=== PATIENT | male | born 1950 | race Caucasian/White ===

== ENCOUNTER 2016-07-03 22:56 | Inpatient (IN) | payer MEDICARE ==
--- NOTE | ~2016-07-03 | DS ---
Discharge Summary [facility] [address] [place]. [address] NAME: JALEN BERNSTEIN NMPark : 50 STATUS : DIS IN PAT#: [id number] AGE: 66 ADM/REG DATE : 07/03/16 MR#: [id number] REPORT SERV DATE: 07/16/16 DICTATED BY: DONOVAN BERNARDO JR DATE: 07/15/16 REPORT STATUS : Draft TRANSCRIBED BY: ITA DATE: 07/15/16 Data Collection from hospitalization DISCHARGE DIAGNOSES: 1. Lower gastrointestinal bleed. 2. Hepatitis - noninfectious. 3. Type 2 diabetes mellitus. 4. End-stage renal disease. 5. Peripheral vascular disease. 6. Coronary artery disease. 7. Ischemic cardiomyopathy with ejection fraction of 25%. 8. Hypertension. 9. Peripheral vascular disease. 10.Obstructive sleep apnea. 11.Former smoker. 12.Obesity. 13.Hyperlipidemia. CONSULTATIONS: 1. Diana Edmonds M.D. 2. Hema West M.D. PROCEDURES PERFORMED: 1. Abdominal ultrasound on 07/04/2016. 2. CT scan of the chest without contrast and CT scan of the abdomen and pelvis without contrast on 07/05/2016. MEDICATIONS: Aspirin 81 mg daily, Dialyvite one tablet every morning, Sensipar 30 mg at bedtime, Plavix 75 mg at bedtime, Docusoft 100 mg twice a day, Apresoline 25 mg every six hours as needed, NovoLog injection insulin as instructed, Lantus 70 units subcutaneously twice a day, Imdur 30 mg twice a day, Fosrenol 750 mg with meals, Lopressor 25 mg twice a day, fish oil 1000 mg twice a day, Protonix 40 mg before breakfast and supper, Florastor 250 mg daily, and Demadex 100 mg on non-hemodialysis days only. He was instructed not to continue Zocor or ranitidine. CONDITION AT DISCHARGE: Stable. DISPOSITION: The patient was discharged home on a renal-diabetic diet with activities as instructed. He would follow up with Dr. Hema West two weeks following discharge. He would undergo a CT scan of the abdomen and chest on 10/07/2016, and he would follow up at [facility] on 07/09/2016. HOSPITAL COURSE: This is a 66-year-old man who dialyzes on Tuesdays, , and Saturdays. He presented initially to [facility] for a complaint of bright red blood per rectum. He was transitioned to [facility] and was found to have elevated liver function tests. He said that he had been experiencing bright red blood per rectum with frequent stooling over the last 72 hours prior to admission. He reports that his stools are tarry colored in nature. He reports that he chronically uses Plavix, but no Discharge Summary [address] [address] NAME: JALEN BERNSTEIN NORM : 50 STATUS : DIS IN PAT#: [id number] AGE: 66 ADM/REG DATE : 07/03/16 MR#: [id number] REPORT SERV DATE: 07/16/16 DICTATED BY: DONOVAN BERNARDO JR DATE: 07/15/16 REPORT STATUS : Draft TRANSCRIBED BY: TIA DATE: 07/15/16 other anticoagulant medications. He was admitted to the hospital at this time for further evaluation and treatment. Upon admission, creatinine level was 9.35. Hemodialysis therapy was going to be performed that day. Level 1 sliding scale insulin was started. He was placed on a renal/diabetic diet. He was going to be held n.p.o. Ultrasound of the liver was requested and we would evaluate him for hepatitis panel. The following day, he was seen by Dr. Diana Edmonds. The patient said he has never had any problems with his liver. His only two new medications are Fosrenol and Sensipar. He has had no recent antibiotics. He had been a drinker at an earlier age of vodka and beer; however, he has not had any significant drinking in 20 years. He had no signs of chronic liver disease. He typically has a bowel movement almost every day or every other day. However, he started to take stool softeners. He has noticed over the last three days that he started to have bleeding and his hemoglobin had dropped a little. He has had multiple colonoscopies where he had been found to have hemorrhoids, diverticulosis, and polyps that were all removed. A CT scan was performed and revealed very subtle thickening of the sigmoid colon with diverticulosis, a little bit of fluid in the abdomen around the spleen and pelvis, a right adrenal gland mass, renal calculi and gall stones. Unfortunately, there was no mention of how big the spleen was while on the CT. They quantify the liver and spleen as normal in size, contour, and attenuation. He has had some hematochezia. He had no further bleeding at this time. He was felt to have hepatitis - acute. Cholesterol medication was stopped. We would recheck his PT/INR. Serologies were going to be checked as well as a followup ultrasound. He was also seen by Dr. Hema West. The patient does have elevated liver enzymes. He is on atorvastatin. He has had no chest pain. DAPT was held. The patient does have an ICD in place. Statin agent was also held. On 07/05/2016, he had no new complaints. He had no focal deficits. He has not had a bowel movement. He had no evidence of bleeding. INR level was 2. Hemoglobin level had improved. There was no evidence of bleeding. AST had decreased. He had no chest pain. On 07/06/2016, the patient had undergone a CT scan of the chest without contrast as well as a CT scan of the abdomen and pelvis without contrast. He felt well. He had no bleeding. Liver function tests had decreased. H and H were stable. He had no melena or hematochezia. He had no chest pain. INR level was 1.7. Statin agent remained on hold. He was started on full liquids. The patient had been found to have a left upper lobe nodule that measured 7 x [address] scan in three months was recommended to evaluate for change or further evaluation with PET-CT. The following day, hemodialysis therapy was performed. He was fully alert and oriented. He was afebrile. Vital signs were stable. He had no signs of any further GI bleeding. Discharge planning was performed. On 07/08/2016, he had no complaints. He was afebrile. Liver function tests had improved, but were still elevated. He had no bleeding. Discharge instructions were given. Due to his improved and stable condition, he was discharged home with the above-stated instructions. Information collected by: Tori Mead I submit the above information as my discharge summary. TG/MODL Discharge Summary [place] [id number] [place]. [address] NAME: JALEN BERNSTEIN NORM : 50 STATUS : DIS IN [facility]#: [id number] AGE: 66 ADM/REG DATE : 07/03/16 MR#: [id number] REPORT SERV DATE: 07/16/16 DICTATED BY: DONOVAN BERNARDO JR DATE: 07/15/16 REPORT STATUS : Draft TRANSCRIBED BY: TIA DATE: 07/15/16 Donovan Bernardo Jr, M.D. / [id number] CC: Leonel Decker Jr, MD Mandeep Grewal, M.D. Munford Yates III, M.D. Alexander Stratienko, M.D.
--- NOTE | ~2016-07-03 | CN ---
Consultation Report [facility] [address] [place]. [address] NAME: JALEN BERNSTEIN : 50 STATUS : ADM IN PAT#: [id number] AGE: 66 ADM/REG DATE : 07/03/16 MR#: [id number] REPORT SERV DATE: 07/04/16 DICTATED BY: OSCAR EDMONDS III DATE: 07/04/16 REPORT STATUS : Draft TRANSCRIBED BY: MODShade DATE: 07/04/16 CONSULTATION DATE OF CONSULTATION: HISTORY OF PRESENT ILLNESS: The patient is a 66-year-old obese white male with multiple medical problems including type 2 diabetes, hypertension, peripheral vascular disease status post left BKA, ischemic cardiomyopathy, obstructive sleep apnea, tobacco abuse, obesity, and end-stage renal disease, who presents from [place] with multiple bloody bowel movements and markedly elevated liver tests. The patient has told me that he never has had problem with his liver. No family history. His only two new medications are Fosrenol and Sensipar. No recent antibiotics. He had been a drinker at an earlier age of vodka and beer; however, he has not had any significant drinking in 20 years. He got back since for hepatitis when he started dialysis about a year ago and at that time, viral serologies were negative. There are no signs of any chronic liver disease. His mental status has been intact, although he has had some fatigue. At the outside hospital, it was noted that his platelets were low at 43,000 and his INR was 2.4, and he is on no anticoagulation. The patient typically has a bowel movement almost every day or every other day. However, he is starting to take stool softeners. He has noticed over the last three days, he started having bleeding, and his hemoglobin dropped a little bit. He has had multiple colonoscopies, the last by Dr. Mikel Altamirano in 10/2015, where he had hemorrhoids, diverticulosis, and polyps that were all removed. CT scan was done that noted some very subtle thickening of his sigmoid colon with diverticulosis, little bit of fluid in the abdomen around the spleen and pelvis, a right adrenal gland mass, renal calculi, and gallstones. Unfortunately, there was no mention as to how big the spleen was while on the CT, they quantified the liver and spleen as normal in size, contour, and attenuation. MEDICATIONS: Aspirin, vitamin B, Sensipar, Plavix, docusate, hydralazine, insulin, Fosrenol, Imdur, Lopressor, Zantac, Florastor, Zocor, and Demadex. ALLERGIES: NONE. PAST SURGICAL HISTORY: 1. Left BKA. 2. Pacemaker. 3. Left renal artery stent. SOCIAL HISTORY: He is . No recent alcohol or drugs. Tobacco abuse as noted. Consultation Report [address] [address] NAME: JALEN BERNSTEIN : 50 STATUS : ADM IN PAT#: [id number] AGE: 66 ADM/REG DATE : 07/03/16 MR#: [id number] REPORT SERV DATE: 07/04/16 DICTATED BY: OSCAR EDMONDS III DATE: 07/04/16 REPORT STATUS : Draft TRANSCRIBED BY: TIA DATE: 07/04/16 PHYSICAL EXAMINATION: GENERAL: The patient is an older than stated age, obese white male. VITAL SIGNS: Stable. He is afebrile, atraumatic, normocephalic. HEENT: Sclerae anicteric. Oropharynx is clean. CHEST: Clear to auscultation. CV: S1, S2. ABDOMEN: Soft, obese, and nontender. Good bowel sounds. EXTREMITIES: Right leg with some chronic inflammatory changes. PERTINENT LABORATORY DATA: Hemoglobin 11.3, platelets 43, creatinine 9.35, CO2 of 29, bilirubin 1.2, albumin 3.4, ALT 5700, AST 7800, CPK 800, ammonia 43. ASSESSMENT AND PLAN: 1. Hematochezia. As noted, the patient presents with hematochezia. There was some concern on the CT regarding some thickening. He is having no pain. No further bleeding. Colonoscopy as noted. In light of the liver abnormalities, we will monitor this and base any further evaluation such as colonoscopy on his clinical status. As such, we will do the following:. a. Monitor stools. b. Monitor bleeding. c. Monitor H and H. 2. Hepatitis. The patient is a middle-aged white male with multiple medical problems, who presents with acute hepatitis. As such, we will do the following:. a. Stop his cholesterol medicine. b. Recheck his PT/INR. c. Serologies. d. Followup ultrasound. e. Mental status is intact while his INR is elevated, which is a little confusing, but we will recheck. MY/MODL Oscar Edmonds III, M.D. / [id number] CC: Leonel Decker Jr, M.D.
--- NOTE | ~2016-07-03 | HP ---
History And Physical [place] [id number] [facility] [place]. [address] NAME: JALEN BERNSTEIN : 50 STATUS : ADM IN PAT#: [id number] AGE: 66 ADM/REG DATE : 07/03/16 MR#: [id number] REPORT SERV DATE: 07/04/16 DICTATED BY: DONOVAN BERNARDO JR DATE: 07/04/16 REPORT STATUS : Draft TRANSCRIBED BY: MODL DATE: 07/04/16 DATE OF ADMISSION: 07/03/2016 REASON FOR ADMISSION: Bright red blood per rectum and elevated LFTs. HISTORY OF PRESENT ILLNESS: This is a fairly pleasant, 66-year-old, male patient, who dialyzes on a TTS schedule at [place], presented initially to [facility] for a complaint of bright red blood per rectum. He was transitioned here to [facility] and noted to have elevated LFTs on evaluation at [facility] prior to transport here. He states that he has been experiencing bright red blood per rectum with frequent stooling over the last 72 hours. He reports that his stools are tarry colored in nature. I do not have current medication records as they have not been collected by the pharmacy, however, he reports chronically using Plavix, but no other anticoagulant medications. He denies current chest pain. No nausea, vomiting, or diarrhea. PAST MEDICAL HISTORY: Positive for end-stage renal disease as above on a Wednesday, , and Wednesday hemodialysis at [place] via a left upper extremity fistula. History is also positive for diabetes mellitus type 2, hypertension, peripheral vascular disease, left BKA, left renal artery stent in 07/2012, ejection fraction of 30% to 35% in 07/2015, obstructive sleep apnea, obesity, history of tobacco use with smoking cessation at 2014 hours and hyperlipidemia. REVIEW OF SYSTEMS: Completed. Please see HPI for pertinent details. SOCIAL HISTORY: No ETOH. No illicit drugs. Remote tobacco abuse as above. MEDICATIONS: Unavailable at current point of dictation. ALLERGIES: HISTORICALLY, HE LISTS ALLERGIES NO KNOWN ALLERGIES. AGAIN, THIS HAS NOT BEEN UPDATED OF THIS ADMISSION. PHYSICAL EXAMINATION: VITAL SIGNS: Blood pressure 127/61, temperature 98.1, respiratory rate 18, heart rate 71 beats per minute and regular. GENERAL: He is awake, alert, oriented x3. No acute distress during evaluation. HEENT: Normocephalic and atraumatic. Normal ocular movements. No scleral icterus. No conjunctival pallor is appreciated. NECK: Supple without thyromegaly. No JVD or mass. CHEST: Shows positive S1 and S2. No rubs or gallops. LUNGS: Diminished. Clear to auscultation, otherwise throughout. Normal expansion and effort bilaterally. No rhonchi or wheezes are appreciated on examination. GI: Positive bowel sounds and a mildly rounded abdomen, nondistended with no mass, no tenderness. : Deferred. EXTREMITIES: Show positive pulses in bilateral upper extremities. Left upper extremity History And Physical [place] [id number] [facility] [place]. [address] NAME: JALEN BERNSTEIN : 50 STATUS : ADM IN [facility] WITH [facility]#: [id number] AGE: 66 ADM/REG DATE : 07/03/16 MR#: [id number] REPORT SERV DATE: 07/04/16 DICTATED BY: DONOVAN BERNARDO JR DATE: 07/04/16 REPORT STATUS : Draft TRANSCRIBED BY: TIA DATE: 07/04/16 fistula with a palpable bruit and thrill. He does have the lower extremity amputation as listed in his medical history. NEUROLOGIC: He appears to be grossly intact. Nonfocal. SKIN: Warm, dry, and intact to visualized surfaces. No rash, lesions, or ecchymosis, PSYCHIATRIC: He has appropriate mood and affect. LABORATORY DATA: Pertinent laboratories and imaging to this evaluation. CBC: White blood cell count 8.9, RBC 3.56, 11.3, hematocrit 35.7, platelets at 43. Hepatic panel: Sodium 142, potassium 5.5, chloride 101, CO2 29, BUN 85, creatinine 9.35 with reflected GFR at 5 mL/minute. Glucose 155, calcium 8.6, magnesium 2.5, albumin 3.4, direct bilirubin 0.4 and indirect is 0.8, ALT 5761, AST 7852, ammonia level 43. IMPRESSION AND PLAN: This is an end-stage renal disease patient, dialyzes on a Wednesday, , and Wednesday schedule at [place], left upper extremity, initially presenting to [facility], now transitioned to [facility] in favor of admission and workup with further supportive care. Admitted end-stage renal disease, bright red blood per rectum with a complaint of tarry stools, onset approximately 72 hours ago with stable hemoglobin and elevated potassium and elevated LFTs. Plan for hemodialysis today. Address home medications as they become available from the pharmacy staff. Place the patient on sliding scale level 1, renal ADA diet, and n.p.o. until evaluated by GI this morning. As his LFTs are elevated, certainly if he is on a statin that will be removed. We will also complete an ultrasound of his liver and evaluate him for hepatitis panel as well. The patient has previously been seen by Dr. Altamirano for his GI needs and we will request a consultation from their service. Serial H and H q.12 hours at this point, and if he remains stable, decrease them to daily. Further modification of treatment plan may be made based on clinical presentation, the patient's laboratory results, further consultation with renal attending. We appreciate GI Services providing assistance in care and medical opinion for care of this patient. DICTATED BY: Jay Roberts NP JR/TIA Donovan Bernardo Jr, M.D. / [id number] CC: Leonel Decker Jr, M.D.
[~2016-07-03 22:56] MED LIST: APRES25 PO; ASA5GR PO; ASAB PO; CAT3 PO; CENTRUM PO; CENTRUM TAB1 TAB PO; COZ50 PO; CRESTOR40 MG PO; DEMA100 PO; DIALYVITE800 MG PO; DOCUSOFT S100 MG PO; FISH-EPA1000 MG PO; FOLIC ACID800 MCG PO; FOLIC PO; HCTZ25B PO; HUMALOGPEN SC; HYDRALAZINE100 MG PO; IMDUR120 PO; IMDUR30 PO; IMDUR60 PO; LANTUSCART SC; LEVEMIR SC; LOP100 PO; LOP25 PO; LOP50 PO; MICARDIS80 PO; NORV5 PO; NOVOLOG SC; PEP20 PO; PLAVIX PO; PLAVIX300 MG PO; PROVENTSOL INH; RENVELA2.4 GM PO; SPIRO25 PO; SPIRO50 PO; VANCOMYCIN; VASOTEC20 MG PO; VITAMIN D31000 UNIT PO; VITC500 PO; ZANTAC150 MG PO; ZOCOR20 PO; ZOSYN; [UNRECOGNIZED DRUG - OTHER]
[2016-07-04 06:21] LABS: HEMATOCRIT 35.7 % (40.0-51.0); HEMOGLOBIN 11.3 g/dL (13.6-17.8); MEAN CORPUS HGB CONC 31.7 g/dL (32.0-36.0); MEAN PLATELET VOLUME 10.8 fL (9.2-13.0); RBC DISTRIBUTION WIDTH 16.9 % (12.0-16.0); RED CELL COUNT 3.56 10/6/uL (4.7-6.1); WHITE BLOOD CELLS 8.9 10/3/uL (4.5-10.5)
[2016-07-04 06:24] LABS: MEAN CORPUSCULAR HEMOGLOB 31.7 pg (26.0-34.0); MEAN CORPUSCULAR VOLUME 100.3 fL (80-100)
[2016-07-04 06:25] LABS: MANUAL DIFF YES %
[2016-07-04 06:50] LABS: ALBUMIN 3.4 G/DL (3.5-5.0); CHLORIDE, SERUM 101 MMOL/L (96-112); CO2 (CARBON DIOXIDE) 29 MMOL/L (24-34); SGPT(ALT) 5761 U/L (5-65); SODIUM, SERUM 142 MMOL/L (135-148)
[2016-07-04 06:51] LABS: BUN (BLOOD UREA NITROGEN) 85 MG/DL (6-23); CALCIUM, SERUM 8.6 MG/DL (8.5-10.4); CREATININE 9.35 MG/DL (0.70-1.30); GFR AFRICAN AMERICAN 6 ML/MIN (>=60); GFR NON AFRICAN AMERICAN 5 ML/MIN (>=60); GLUCOSE, SERUM 155 MG/DL (60-99); POTASSIUM, SERUM 5.5 MMOL/L (3.5-5.3)
[2016-07-04 06:52] LABS: ALKALINE PHOSPHATASE 111 U/L (45-117); DIRECT BILIRUBIN 0.4 MG/DL (0.0-0.4); INDIRECT BILIRUBIN(NOT ORDER) 0.8 MG/DL (0.1-0.9); SGOT(AST) 7852 U/L (5-40); TOTAL BILIRUBIN 1.2 MG/DL (0-1.2); TOTAL PROTEIN 6.1 G/DL (6.0-8.5)
[2016-07-04 07:14] LABS: PLATELET COUNT 43 10/3/uL (150-400)
[2016-07-04 07:16] LABS: BAND NEUTROPHILS 1 %; LYMPHOCYTES 10 %; LYMPHOCYTES ABSOLUTE (CALC) 0.89 10/3/uL (0.67-4.30); MACROCYTES 1+ (5-10/OIF) (0-5/OIF); MONOCYTES 6 %; MONOCYTES ABSOLUTE (CALC) 0.53 10/3/uL (0.21-1.20); NEUTROPHILS ABSOLUTE (CALC) 7.48 10/3/uL (2.02-8.40); SEGMENTED NEUTROPHIL (0) 83 %; TOTAL NUCLEATED CELLS 100
[2016-07-04] MEDS ORDERED: SENSIPAR30 MG PO (10:00)
[2016-07-04] MEDS ORDERED: ZANTAC150 MG PO (10:04)
[2016-07-04] MEDS ORDERED: FOSRENOL750 MG PO (10:08)
[2016-07-04] MEDS ORDERED: FLORASTOR250 MG PO (10:08)
[2016-07-04 19:11] LABS: BASOPHILS 0.5 %; BASOPHILS ABSOLUTE 0.04 10/3/uL (0.0-0.16); EOSINOPHILS 1.4 %; EOSINOPHILS ABSOLUTE 0.11 10/3/uL (0.0-0.53); HEMOGLOBIN 12.1 g/dL (13.6-17.8); IMMATURE GRANULOCYTES 0.3 %; IMMATURE GRANULOCYTES ABSOLUTE 0.02 10/3/uL (0.0-0.11); INTERNATIONAL NORMAL RATI 2.3 UNITS (-); LYMPHOCYTES 7.6 %; MANUAL DIFF NO %; MEAN CORPUS HGB CONC 31.8 g/dL (32.0-36.0); MEAN CORPUSCULAR HEMOGLOB 31.3 pg (26.0-34.0); MEAN CORPUSCULAR VOLUME 98.2 fL (80-100); MEAN PLATELET VOLUME 11.1 fL (9.2-13.0); MONOCYTES 6.8 %; MONOCYTES ABSOLUTE 0.54 10/3/uL (0.21-1.20); NEUTROPHILS 83.4 %; NEUTROPHILS ABSOLUTE 6.58 10/3/uL (2.02-8.40); PLATELET COUNT 58 10/3/uL (150-400); PROTIME (NOT ORD) 25.3 SEC (12.0-14.5); RBC DISTRIBUTION WIDTH 16.3 % (12.0-16.0); RED CELL COUNT 3.87 10/6/uL (4.7-6.1); WHITE BLOOD CELLS 7.9 10/3/uL (4.5-10.5)
[2016-07-04 19:25] LABS: PLATELET ESTIMATE DEC (ADEQUATE)
[2016-07-04 19:30] LABS: ALBUMIN 3.9 G/DL (3.5-5.0); BUN (BLOOD UREA NITROGEN) 61 MG/DL (6-23); CHLORIDE, SERUM 103 MMOL/L (96-112); CO2 (CARBON DIOXIDE) 28 MMOL/L (24-34); CREATININE 6.91 MG/DL (0.70-1.30); GFR AFRICAN AMERICAN 9 ML/MIN (>=60); GFR NON AFRICAN AMERICAN 8 ML/MIN (>=60); GLUCOSE, SERUM 178 MG/DL (60-99); IMMUNOGLOBULIN A 223 MG/DL (70-420); IMMUNOGLOBULIN G 918 MG/DL (673-1464); IMMUNOGLOBULIN M 34 MG/DL (30-270); POTASSIUM, SERUM 4.5 MMOL/L (3.5-5.3); SODIUM, SERUM 141 MMOL/L (135-148)
[2016-07-05 08:54] LABS: BASOPHILS 0.3 %; BASOPHILS ABSOLUTE 0.02 10/3/uL (0.0-0.16); EOSINOPHILS 1.9 %; EOSINOPHILS ABSOLUTE 0.13 10/3/uL (0.0-0.53); HEMATOCRIT 37.2 % (40.0-51.0); HEMOGLOBIN 11.8 g/dL (13.6-17.8); IMMATURE GRANULOCYTES 0.3 %; IMMATURE GRANULOCYTES ABSOLUTE 0.02 10/3/uL (0.0-0.11); LYMPHOCYTES ABSOLUTE 0.55 10/3/uL (0.67-4.30); MEAN CORPUS HGB CONC 31.7 g/dL (32.0-36.0); MEAN CORPUSCULAR HEMOGLOB 30.9 pg (26.0-34.0); MEAN CORPUSCULAR VOLUME 97.4 fL (80-100); MEAN PLATELET VOLUME 11.9 fL (9.2-13.0); MONOCYTES 5.8 %; NEUTROPHILS 83.7 %; NEUTROPHILS ABSOLUTE 5.78 10/3/uL (2.02-8.40); PLATELET COUNT 57 10/3/uL (150-400); RBC DISTRIBUTION WIDTH 16.1 % (12.0-16.0); RED CELL COUNT 3.82 10/6/uL (4.7-6.1); WHITE BLOOD CELLS 6.9 10/3/uL (4.5-10.5)
[2016-07-05 09:00] LABS: PROTIME (NOT ORD) 22.6 SEC (12.0-14.5)
[2016-07-05 09:04] LABS: MANUAL DIFF NO %
[2016-07-05 09:24] LABS: A/G RATIO 1.1 (0.7-1.9); ALBUMIN 3.6 G/DL (3.5-5.0); ALKALINE PHOSPHATASE 134 U/L (45-117); BUN (BLOOD UREA NITROGEN) 67 MG/DL (6-23); CALCIUM, SERUM 8.8 MG/DL (8.5-10.4); CHLORIDE, SERUM 106 MMOL/L (96-112); CO2 (CARBON DIOXIDE) 25 MMOL/L (24-34); CREATININE 7.58 MG/DL (0.70-1.30); GFR AFRICAN AMERICAN 8 ML/MIN (>=60); GFR NON AFRICAN AMERICAN 7 ML/MIN (>=60); GLOBULIN 3.2 G/DL (2.5-4.1); GLUCOSE, SERUM 143 MG/DL (60-99); POTASSIUM, SERUM 4.4 MMOL/L (3.5-5.3); SGOT(AST) 3717 U/L (5-40); SGPT(ALT) 5104 U/L (5-65); SODIUM, SERUM 142 MMOL/L (135-148); TOTAL BILIRUBIN 1.4 MG/DL (0-1.2); TOTAL PROTEIN 6.8 G/DL (6.0-8.5)
[2016-07-05 09:41] LABS: PLATELET ESTIMATE DEC (ADEQUATE)
[2016-07-05 09:42] LABS: RBC MORPHOLOGY NORM (NORMAL)
[2016-07-05 18:58] LABS: HEMATOCRIT 38.9 % (40.0-51.0); HEMOGLOBIN 12.4 g/dL (13.6-17.8)
[2016-07-06 04:35] LABS: BASOPHILS 0.4 %; BASOPHILS ABSOLUTE 0.03 10/3/uL (0.0-0.16); EOSINOPHILS 1.9 %; EOSINOPHILS ABSOLUTE 0.13 10/3/uL (0.0-0.53); HEMATOCRIT 36.4 % (40.0-51.0); HEMOGLOBIN 11.6 g/dL (13.6-17.8); IMMATURE GRANULOCYTES 0.3 %; IMMATURE GRANULOCYTES ABSOLUTE 0.02 10/3/uL (0.0-0.11); LYMPHOCYTES 9.9 %; LYMPHOCYTES ABSOLUTE 0.69 10/3/uL (0.67-4.30); MEAN CORPUS HGB CONC 31.9 g/dL (32.0-36.0); MEAN CORPUSCULAR HEMOGLOB 30.9 pg (26.0-34.0); MEAN CORPUSCULAR VOLUME 97.1 fL (80-100); MEAN PLATELET VOLUME 11.1 fL (9.2-13.0); MONOCYTES 11.7 %; MONOCYTES ABSOLUTE 0.81 10/3/uL (0.21-1.20); NEUTROPHILS 75.8 %; NEUTROPHILS ABSOLUTE 5.26 10/3/uL (2.02-8.40); PLATELET COUNT 56 10/3/uL (150-400); RBC DISTRIBUTION WIDTH 16.2 % (12.0-16.0); RED CELL COUNT 3.75 10/6/uL (4.7-6.1); WHITE BLOOD CELLS 6.9 10/3/uL (4.5-10.5)
[2016-07-06 04:36] LABS: MANUAL DIFF NO %
[2016-07-06 04:40] LABS: INTERNATIONAL NORMAL RATI 1.7 UNITS (-); PROTIME (NOT ORD) 19.6 SEC (12.0-14.5)
[2016-07-06 04:53] LABS: PLATELET ESTIMATE DEC (ADEQUATE)
[2016-07-06 04:54] LABS: POLYCHROMASIA 1+ (2-5/OIF) (0-1/OIF)
[2016-07-06 05:05] LABS: A/G RATIO 1.1 (0.7-1.9); ALBUMIN 3.4 G/DL (3.5-5.0); ALKALINE PHOSPHATASE 128 U/L (45-117); CALCIUM, SERUM 8.4 MG/DL (8.5-10.4); CHLORIDE, SERUM 103 MMOL/L (96-112); CO2 (CARBON DIOXIDE) 25 MMOL/L (24-34); CPK 77 U/L (0-200); GAMMA GT 67 U/L (5-85); GLOBULIN 3.1 G/DL (2.5-4.1); GLUCOSE, SERUM 148 MG/DL (60-99); INDIRECT BILIRUBIN(NOT ORDER) 0.7 MG/DL (0.1-0.9); PHOSPHORUS, SERUM 5.7 MG/DL (2.5-4.5); POTASSIUM, SERUM 4.1 MMOL/L (3.5-5.3); SGOT(AST) 1955 U/L (5-40); SGPT(ALT) 3994 U/L (5-65); SODIUM, SERUM 141 MMOL/L (135-148); TOTAL BILIRUBIN 1.5 MG/DL (0-1.2); TOTAL PROTEIN 6.5 G/DL (6.0-8.5)
[2016-07-06 05:06] LABS: BUN (BLOOD UREA NITROGEN) 77 MG/DL (6-23); CREATININE 8.29 MG/DL (0.70-1.30); DIRECT BILIRUBIN 0.8 MG/DL (0.0-0.4); GFR AFRICAN AMERICAN 7 ML/MIN (>=60); GFR NON AFRICAN AMERICAN 6 ML/MIN (>=60)
[2016-07-07 04:40] LABS: BASOPHILS 0.3 %; BASOPHILS ABSOLUTE 0.02 10/3/uL (0.0-0.16); EOSINOPHILS ABSOLUTE 0.06 10/3/uL (0.0-0.53); HEMATOCRIT 35.4 % (40.0-51.0); HEMOGLOBIN 11.4 g/dL (13.6-17.8); IMMATURE GRANULOCYTES 0.3 %; IMMATURE GRANULOCYTES ABSOLUTE 0.02 10/3/uL (0.0-0.11); LYMPHOCYTES 11.3 %; MANUAL DIFF NO %; MEAN CORPUS HGB CONC 32.2 g/dL (32.0-36.0); MEAN CORPUSCULAR HEMOGLOB 31.1 pg (26.0-34.0); MEAN CORPUSCULAR VOLUME 96.5 fL (80-100); MEAN PLATELET VOLUME 10.4 fL (9.2-13.0); MONOCYTES 11.5 %; MONOCYTES ABSOLUTE 0.71 10/3/uL (0.21-1.20); NEUTROPHILS 75.6 %; NEUTROPHILS ABSOLUTE 4.67 10/3/uL (2.02-8.40); PLATELET COUNT 59 10/3/uL (150-400); RBC DISTRIBUTION WIDTH 16.2 % (12.0-16.0); RED CELL COUNT 3.67 10/6/uL (4.7-6.1); WHITE BLOOD CELLS 6.2 10/3/uL (4.5-10.5)
[2016-07-07 04:48] LABS: INTERNATIONAL NORMAL RATI 1.6 UNITS (-); PROTIME (NOT ORD) 18.7 SEC (12.0-14.5)
[2016-07-07 05:01] LABS: ALBUMIN 3.3 G/DL (3.5-5.0); ALKALINE PHOSPHATASE 121 U/L (45-117); BUN (BLOOD UREA NITROGEN) 88 MG/DL (6-23); CALCIUM, SERUM 7.4 MG/DL (8.5-10.4); CHLORIDE, SERUM 103 MMOL/L (96-112); CO2 (CARBON DIOXIDE) 27 MMOL/L (24-34); CREATININE 8.42 MG/DL (0.70-1.30); GFR AFRICAN AMERICAN 7 ML/MIN (>=60); GFR NON AFRICAN AMERICAN 6 ML/MIN (>=60); GLOBULIN 3.2 G/DL (2.5-4.1); GLUCOSE, SERUM 65 MG/DL (60-99); POTASSIUM, SERUM 3.6 MMOL/L (3.5-5.3); SGOT(AST) 796 U/L (5-40); SGPT(ALT) 2758 U/L (5-65); SODIUM, SERUM 142 MMOL/L (135-148); TOTAL BILIRUBIN 1.9 MG/DL (0-1.2); TOTAL PROTEIN 6.5 G/DL (6.0-8.5)
[2016-07-07 05:11] LABS: PLATELET ESTIMATE DEC (ADEQUATE); RBC MORPHOLOGY NORM (NORMAL)
[2016-07-07 10:31] LABS: HEPATITIS C ANTIBODY NON-REACTIVE (NON-REACT)
[2016-07-08 06:29] LABS: BASOPHILS 0.4 %; BASOPHILS ABSOLUTE 0.03 10/3/uL (0.0-0.16); EOSINOPHILS 2.5 %; EOSINOPHILS ABSOLUTE 0.17 10/3/uL (0.0-0.53); HEMATOCRIT 38.8 % (40.0-51.0); HEMOGLOBIN 12.3 g/dL (13.6-17.8); IMMATURE GRANULOCYTES 0.3 %; IMMATURE GRANULOCYTES ABSOLUTE 0.02 10/3/uL (0.0-0.11); LYMPHOCYTES 15.5 %; LYMPHOCYTES ABSOLUTE 1.05 10/3/uL (0.67-4.30); MANUAL DIFF NO %; MEAN CORPUS HGB CONC 31.7 g/dL (32.0-36.0); MEAN CORPUSCULAR HEMOGLOB 31.1 pg (26.0-34.0); MEAN CORPUSCULAR VOLUME 98.2 fL (80-100); MEAN PLATELET VOLUME 10.6 fL (9.2-13.0); MONOCYTES 11.6 %; MONOCYTES ABSOLUTE 0.79 10/3/uL (0.21-1.20); NEUTROPHILS 69.7 %; NEUTROPHILS ABSOLUTE 4.73 10/3/uL (2.02-8.40); PLATELET COUNT 65 10/3/uL (150-400); RBC DISTRIBUTION WIDTH 16.4 % (12.0-16.0); RED CELL COUNT 3.95 10/6/uL (4.7-6.1); WHITE BLOOD CELLS 6.8 10/3/uL (4.5-10.5)
[2016-07-08 06:51] LABS: PLATELET ESTIMATE DEC (ADEQUATE)
[2016-07-08 06:52] LABS: POLYCHROMASIA 1+ (2-5/OIF) (0-1/OIF)
[2016-07-08 09:06] LABS: ALBUMIN 3.6 G/DL (3.5-5.0); ALKALINE PHOSPHATASE 133 U/L (45-117); BUN (BLOOD UREA NITROGEN) 68 MG/DL (6-23); CALCIUM, SERUM 8.1 MG/DL (8.5-10.4); CHLORIDE, SERUM 103 MMOL/L (96-112); CO2 (CARBON DIOXIDE) 29 MMOL/L (24-34); CREATININE 6.89 MG/DL (0.70-1.30); GFR AFRICAN AMERICAN 9 ML/MIN (>=60); GFR NON AFRICAN AMERICAN 8 ML/MIN (>=60); GLOBULIN 3.7 G/DL (2.5-4.1); GLUCOSE, SERUM 89 MG/DL (60-99); POTASSIUM, SERUM 4.8 MMOL/L (3.5-5.3); SGOT(AST) 375 U/L (5-40); SGPT(ALT) 2065 U/L (5-65); SODIUM, SERUM 139 MMOL/L (135-148); TOTAL BILIRUBIN 1.2 MG/DL (0-1.2); TOTAL PROTEIN 7.3 G/DL (6.0-8.5)
[2016-07-08 10:41] LABS: ANA TITER <1:40 TITER
[2016-07-08] MEDS ORDERED: PROTONIX PO (15:26)
[2016-07-08 17:29] LABS: HEPATITIS B CORE AB TOTAL Non Reactive (NR)
[2016-07-09 13:53] LABS: SMOOTH MUSCLE ANTIBODIES Negative (NEG)
== END 2016-07-08 17:21 | disposition home or self-care (01) | DRG 441 ==
LOC: 2SO 22:56
PROVIDERS: Internal Medicine Gastroenterology; Internal Medicine Nephrology; Registered Nurse
PROC: 5A1D60Z (ICD-10-PCS; principal; 2016-07-07)
DX: K72.00 Acute and subacute hepatic failure without coma (principal); N18.6 End stage renal disease; E11.22 Type 2 diabetes mellitus with diabetic chronic kidney disease; I12.0 Hypertensive chronic kidney disease with stage 5 chronic kidney disease or end stage renal disease; K64.9 Unspecified hemorrhoids; I49.3 Ventricular premature depolarization; G47.33 Obstructive sleep apnea (adult) (pediatric); E66.9 Obesity, unspecified; E78.5 Hyperlipidemia, unspecified; I25.5 Ischemic cardiomyopathy; K57.30 Diverticulosis of large intestine without perforation or abscess without bleeding; I70.1 Atherosclerosis of renal artery; I73.9 Peripheral vascular disease, unspecified; K80.20 Calculus of gallbladder without cholecystitis without obstruction; E87.5 Hyperkalemia; Z99.2 Dependence on renal dialysis; Z95.0 Presence of cardiac pacemaker; Z87.891 Personal history of nicotine dependence; Z89.512 Acquired absence of left leg below knee
CPT/HCPCS: 71250; 74176; 76700; 80048; 80053; 80069; 80076; 82140; 82248; 82550; 82784; 82962; 82977; 83735; 84100; 85014; 85018; 85025; 85610; 86039; 86255; 86704; 86706; 86708; 86803; A9270-GY; G0257